=== PATIENT | female | born 1980 | race Native Hawaiian/Other Pacific Islander ===

== ENCOUNTER 2024-08-01 15:41 | Outpatient (CLI) | payer OTHER, SELFPAY ==
[2024-08-04 04:55] LABS: HPV Source Cervix; HPV, High Risk by TMA Not Detected
== END 2024-08-01 15:42 | disposition home or self-care (01) ==
PROVIDERS: Visit Provider Registered Nurse
DX: Z12.4 Encounter for screening for malignant neoplasm of cervix (principal); Z11.51 Encounter for screening for human papillomavirus (HPV); Z13.6 Encounter for screening for cardiovascular disorders
CPT/HCPCS: 80061; 87624; 87625; 88141; 88142

== ENCOUNTER 2024-08-06 14:56 | Outpatient (CLI) | payer OTHER, SELFPAY | END 2024-08-06 14:57 | disposition home or self-care (01) | LOC: US 14:58 | PROVIDERS: Visit Provider Registered Nurse | DX: R10.2 Pelvic and perineal pain (principal); R14.0 Abdominal distension (gaseous) | CPT/HCPCS: 76830; 76856; 93976 ==

== ENCOUNTER 2024-08-21 16:10 | Outpatient (CLI) | payer OTHER, SELFPAY | END 2024-08-21 16:11 | disposition home or self-care (01) | PROVIDERS: Visit Provider Family Medicine | DX: R10.30 Lower abdominal pain, unspecified (principal); R10.2 Pelvic and perineal pain | CPT/HCPCS: 80053; 86140; 87086; 87186 ==

== ENCOUNTER 2024-09-04 14:52 | Outpatient (CLI) | payer OTHER, SELFPAY ==
--- NOTE | 2024-09-04 15:00 | CRLHL7_ITS ---
For Patients: As a result of the Century Cures Act, medical imaging exams and procedure reports are released immediately into your electronic medical record. You may view this report before your referring provider. If you have questions, please contact your health care provider. INDICATION: Lower abdominal pain. Evaluate for mass, constipation, stones. TECHNIQUE: CT abdomen and pelvis without contrast. COMPARISON: None. FINDINGS: Lower chest: 5 mm middle lobe nodule (3/3) and 5 mm right lower lobe subpleural nodule (3/1). No acute infiltrate. Liver: Normal in size and attenuation. No suspicious masses. Gallbladder and bile ducts: No stones or inflammation. No biliary dilatation. Pancreas: Unremarkable. No mass or inflammation. Spleen: Normal in size. No masses. Adrenal glands: Normal in size. No nodules. Kidneys: Normal in size. Punctate nonobstructive renal calcifications. No suspicious masses, obstructive stones, or hydronephrosis. GI tract: Unremarkable. Normal in caliber. No sign of mass or inflammation. No secondary signs of appendicitis. Vasculature: Abdominal aorta is normal in caliber. Lymph nodes: No lymphadenopathy. Peritoneum/Abdominal Wall: Unremarkable. No sign of mass or infiltration. No free air or significant free fluid. Pelvis: Bladder is unremarkable. Right adnexal cyst measuring up to 4.3 cm (2/102). Bones: Unremarkable for age. IMPRESSION: 1. No definite acute findings to explain the patient`s symptoms. 2. Right adnexal cyst measuring up to 4.3 cm that could be evaluated in greater detail on pelvic ultrasound, if clinically indicated. Please note that all CT scans at this facility use dose modulation, iterative reconstruction, and/or weight-based dosing when appropriate to reduce radiation dose to as low as reasonably achievable. Dictated by Rafi Dickerson MD @ 09/05/2024 3:48:01 AM (Electronically Signed)
== END 2024-09-04 14:53 | disposition home or self-care (01) ==
LOC: CT 14:53
PROVIDERS: PCP Family Medicine; Visit Provider Family Medicine
DX: R10.30 Lower abdominal pain, unspecified (principal); N94.89 Other specified conditions associated with female genital organs and menstrual cycle; R10.2 Pelvic and perineal pain
CPT/HCPCS: 74176

== ENCOUNTER 2025-02-17 20:51 | Emergency (ER) | payer OTHER, SELFPAY ==
--- OUTSIDE RECORDS SUMMARY | 2025-02-17 20:53 | XMS_ITS | Clinical Summary ---
Author Organization [facility] Address [address] [place] [id number] Care Team Providers Care Emt Driver Name Role Phone Ruma Thomas DO Primary Care Provider [phone] Allergies No known active allergies Medications albuterol-ipratro pium (DUONEB) (2.5-0.5 mg) in 3 mL NEBULIZATION solutionIndicatio ns:Mild intermittent asthma without complication (HC) Inhale 3 mL via a nebulizer every 6 hours if needed for Shortness Of Breath or Wheezing. 75 mL 5 01/24/20 25 Active albuterol HFA (PRO-AIR; VENTOLIN; PROVENTIL) 90 mcg/actuation inhalerIndication s:Mild intermittent asthma without complication (HC) Inhale 2 Puffs by mouth every 4 hours if needed for Shortness of Breath 1st choice or Wheezing 1st choice. Needs appointment for further refills. 16 g 3 01/24/20 25 Active fluticasone propion-salmetero L (Advair Diskus) 250-50 mcg/Dose diskus inhalerIndication s:Mild intermittent asthma without complication (HC) Inhale 1 Puff by mouth two times daily. 60 Each 11 01/24/20 25 Active NebulizerIndicati ons:Mild intermittent asthma without complication (HC) Nebulizer, disposable neb kit x 4, reuseable neb kit x 1, mask x 1, filters x 1. Frequency of use: daily; Medication: albuterol Length of need: lifestime 01/24/20 25 Active albuterol 0.083% (2.5 mg/3 mL) neb solutionIndicatio ns:Mild intermittent asthma without complication (HC) Inhale 3 mL (2.5 mg) via a nebulizer every 4 hours if needed for Wheezing 2nd choice or Shortness of Breath 2nd choice. Needs appointment for further refills. 30 mL 12/28/19 24 025 Discontin ued(*Medi cation adjustmen t) NebulizerIndicati ons:Mild intermittent asthma without complication (HC) Nebulizer, disposable neb kit x 4, reuseable neb kit x 1, mask x 1, filters x 1. Frequency of use: daily; Medication: albuterol Length of need: lifestime 1 Each 12/28/19 24 025 Discontin ued(Reord er (E-cancel not sent)) norethin anali-eth estrad-fe, 1-20 mg-mcg, (LOESTRIN FE 07/02; JUNEL FE 07/02) tabletIndications :Initiation of oral contraception Take 1 Tablet by mouth once daily. 90 Tablet 3 07/20/19 25 025 Discontin ued(*Milagro ent states no longer taking) albuterol HFA (PRO-AIR; VENTOLIN; PROVENTIL) 90 mcg/actuation inhalerIndication s:Mild intermittent asthma without complication (HC) Inhale 2 Puffs by mouth every 4 hours if needed for Shortness of Breath 1st choice or Wheezing 1st choice. Needs appointment for further refills. 8 g 1 12/29/19 025 Discontin ued(Reord er (E-cancel not sent)) fluticasone propion-salmetero L (Advair Diskus) 250-50 mcg/Dose diskus inhalerIndication s:Mild intermittent asthma without complication (HC) Inhale 1 Puff by mouth two times daily. 60 Each 12/28/19 25 025 Discontin ued(Reord er (E-cancel not sent)) Hospital, Clinic, or Other Facility Administered Medication Ordered Dose Route Frequency Start Date End Date Status etonogestrel subdermal implant (NEXPLANON) 1 EachIndications:Encounter for removal and reinsertion of Nexplanon 1 Each Sdrm Q 3 YEARS 07/01/2021 Active Active Problems Problem Noted Date Diagnosed Date Cubital tunnel syndrome on left 11/08/2023 S/P trigger finger release 08/30/2023 S/P carpal tunnel release 08/30/2023 Carpal tunnel syndrome of left wrist 05/24/2023 Carpal tunnel syndrome of right wrist 05/24/2023 Trigger middle finger of right hand 05/24/2023 Anxiety and depression 08/21/2021 Mild intermittent asthma 07/19/2017 Anxiety 04/21/2016 Obesity with body mass index 30 or greater 09/03 Allergic rhinitis 09/03/2014 Encounters Date Type Department Care Team Description 01/23/2025 3:30 PM CDT Office Visit [facility] [address] [place] [address] Contreras Gooden PA Medication Management 01/23/2025 Travel 12/27/[address] [facility] [address] [place] [address] Ruma Thomas, Refill Request (albuterol HFA & fluticasone propion-salmeteroL) from Last 3 Months Immunizations Immunization Administration Dates Next Due Influenza Virus, Unspecified 03/20/2020,06/01/20 12 Influenza, IIV3 (Age >=3 years) 06/01/2012 Influenza, IIV4 03/02/2023,04/09/2021,03/16/2019 Influenza,LAIV4 Live Intranasal (Flumist) 2011 Td, Preservative Free (age >= 7 Years) 3 Tdap 06/01/2012 Family History Medical History Relation Name Comments Good Health Brother Good Health Daughter Heart Disease Father maybe [place]? Dementia Maternal Grandfather Dementia Maternal Grandmother Good Health Mother Good Health Sister Good Health Son Relation Name Status Comments Brother Alive Daughter Alive Father Maternal Grandfather Maternal Grandmother Mother Alive Paternal Grandfather Paternal Grandmother Sister Alive Son Alive Social History Tobacco Use Types Packs/Day Years Used Date Smoking Tobacco: Former Cigarettes 0 13 2 - 2013 Smokeless Tobacco: Never Alcohol Use Standard Drinks/Week Comments Yes 4 (1 standard drink = 0.6 oz pur e alcohol) weekends PHQ-2 Answer Date Recorded PHQ-2 TOTAL SCORE 2 01/23/2025 Social Connections Answer Date Recorded Do you often feel lonely or isolated from those around you? 0 07/20/2024 Alcohol Use Answer Date Recorded How often do you have a drink containing alcohol ? 2 07/01/2021 How many drinks containing a lcohol do you have on a typical day when you are drinking? 0 07/01/2021 How often do you have five or more drinks on one occasion? 0 07/01/2021 Financial Resource Strain Answer Date R ecorded Difficulty of Paying Living Expenses 3 07/20/2024 Difficulty of Paying Living Expenses Not on file 07/20/2024 Food Insecurity Answer Date Recorded Do you worry your food will run out before you are able to buy more? 1 07/20/2024 Transportation Needs Answer Date Record ed Does lack of transportation keep you from medica l appointments? 1 07/20/2024 Does lack of transportation keep you from work, meetings or getting things that you need? 1 07/20/2024 Housing Stability Answer Date Recorded What is your housing situation today? 1 07/20/2024 Utilities Answer Date Recorded Do you have trouble paying f or utilities (for example, heat, electricity, water, phone)? 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 Not on file Obstetrics History Last Filed Vital Signs Vital Sign Reading Time Taken Comments Blood Pressure 124/80 01/23/2025 3:44 PM CDT Pulse 77 01/23/2025 3:44 PM CDT Temperature 36.5 C (97.7 F) 07/20/2024 4:04 PM KNOWLEDGE ENGINEER Respiratory Rate 16 06/16/2023 9:41 AM KNOWLEDGE ENGINEER Oxygen Saturation 98% 01/23/2025 3:4 4 PM CDT Inhaled Oxygen Concentration - - Weight 73.1 kg (161 lb 1.6 oz) 01/24/20 25 3:44 PM CDT with boots Height 152.4 cm (5') 01/23/2025 3:44 PM CDT with boots Body Mass Index 31.46 01/23/2025 3:44 PM CDT Plan of Treatment Health Maintenance Due Date Last Done Comments HIV for age 15-65 1996 Hepatitis C screening for age 18-79 08/13/1999 Hepatitis B series for 19+ (1 of 3 - 19+ 3-dose series) 2000 COVID-19 vaccine series (2024- season) 2025 05/18/2021, 09/30/2020, 09/09/2020 Influenza Vaccine (#1) 2025 , 04/09/2021, 03/20/2020, Additional history exists BMI (ht and wt on same day) for age 18+ 01/23/2026 01/23/2025, 06/22/2023, 03/02/2023, Additional history exists Depression screening for age 12+ 01/23/2026 01/23/2025, 03/02/2023, 12/10/2021, Additional history exists Pap test for age 21-65 08/02/2029 (Verified in Care Everywhere or Patient Record) Tetanus booster 03/02/2033 03/02/2023, 06/01/2012 RSV vaccine for adults or (1 - 1-dose 75+ series) 2056 Pneumococcal series for age 6-49 Aged Out No longer eligible based on patient's age to complete this topic Insurance [facility] Advance Directives * Full Code (Latest Code Status on File) Date Activated Date Inactivated Comments 06/16/2023 8:21 AM 06/16/2023 1:24 PM Question Answer Comments Code Status Discussion: Unable to Assess Preferences, Provider to review later Care Teams Emt Driver Relationship Specialty Start Date End Date Ruma Thomas DO [address] [place] [address] PCP - General Family Practice 12/28/23
--- OUTSIDE RECORDS SUMMARY | 2025-02-17 20:53 | XMS_ITS | Clinical Summary ---
Author Organization [employer] Address [address] [place] [address] Care Team Providers Care Sr Technical Sales Consultant Name Role Phone Needs Pcp, Assignment Primary Care Provider [phone] Source Comments You are receiving this document as you are listed as the primary care provider,follow-up provider, or the patient has been referred to you for consultation.This is in compliance with the Medicare and[facility] EHR Incentive Program,which states Providers who transition their patient to another setting of careor provider of care or refers their patient to another provider of care shouldprovide summary care record for each transition of care or referral. [employer] Allergies No known active allergies Medications fluticasone (AKA FLOVENT HFA) 110 mcg/actuation inhalerIndicati ons:Asthma flare, mild persistent (HRC) Inhale 1 puff 2 times daily. Rinse mouth/Gargle after use 1 Inhaler PRN 5 Active ALBUterol 5 mg/mL, 0.5%, (AKA PROVENTIL) (5 MG/ML) 0.5% nebulizer solution Inhale 2.5 mg by nebulization 3 times daily. 5 Active fluticasone (AKA FLONASE) 50 MCG/ACT nasal solution Place 2 sprays into each nostril daily (every 24 hours). Dose is for each nostril. 16 g 11 5 Active ALBUterol sulfate HFA 108 (90 BASE) MCG/ACT inhaler Inhale 2 puffs every 6 hours as needed for Wheezing. 1 Inhaler 0 6 Active DULoxetine (CYMBALTA) 60 MG capsule Take 60 mg by mouth daily. Active busPIRone (BUSPAR) 15 MG tablet Take 7.5 mg by mouth two times a day. Active cephALEXin (KEFLEX) 500 MG capsule Take 1 Cap by mouth two times a day. 14 Cap 0 7 Active Active Problems Problem Noted Date Diagnosed Date Allergic rhinitis due to allergen 09/03/2014 Asthma flare 09/03/2014 Obesity (BMI 30-39.9) 09/03/2014 Resolved Problems Problem Noted Date Diagnosed Date Resolved Date Asthma flare 09/02/2014 09/03/2014 Immunizations Immunization Administration Dates Next Due Flu Vac Preserv Free (3+yrs) 06/01/2012 TDAP (ADACEL) 06/01/2012 Family History Medical History Relation Name Comments Depression Other Relation Name Status Comments Father Alive Mother Alive Brother Alive Other Sister Alive Social History Tobacco Use Types Packs/Day Years Used Date Smoking Tobacco: Former Alcohol Use Standard Drinks/Week Comments Yes 2 (1 standard drink = 0.6 oz pur e alcohol) 2 per week Comments Unknown Sex and Gender Information Value Date Recorded Sex Assigned at Not on file Legal Sex Female 7:44 AM CDT Gender Identity Not on file Sexual Orientation Not on file 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 Pulse 77 07/09/2016 2:29 PM MULTIMEDIA AUTHORING SPECIALIST Temperature 36.7 C (98 F) 07/09/2016 2:29 PM MULTIMEDIA AUTHORING SPECIALIST Respiratory Rate 20 07/09/2016 2:29 PM MULTIMEDIA AUTHORING SPECIALIST Oxygen Saturation - - Inhaled Oxygen Concentration - - Weight 69.7 kg (153 lb 9.6 oz) 10/16/2014 11:45 AM CDT Height 149.2 cm (4' 10.75) 10/16/2014 11:45 AM CDT Body Mass Index 31.29 10/16/2014 11:45 AM CDT Plan of Treatment Health Maintenance Due Date Last Done Comments Cervical Cancer Screening Due 1981 Hep C Screening (Preventive Services) 1981 Mammogram 1981 Asthma ACT (score of 20 or higher) 1985 HIV Screening (Preventive Services) 1997 Adult Preventive Visit 08/13/1999 HepB Vaccine (1) 2000 HPV Vaccine (1 - 3-dose SCDM series) 2008 DTaP/Tdap/Td Vaccine (2 - Tdap) 06/01/2022 2 COVID-19 Vaccine (1 - 2023-2 5 season) 2025 Influenza Vaccine (#1) 2025 06/01/2012 Zoster/Shingles Vaccine (1 of 2) 08/13/2031 HepA Vaccine Aged Out No longer eligi ble based on patient's age to complete this topic Hib Vaccine Aged Out No longer eligi ble based on patient's age to complete this topic IPV (Polio) Vaccine Aged Out No longe r eligible based on patient's age to complete this topic MCV4 Vaccine Aged Out No longer eligi ble based on patient's age to complete this topic Meningococcal B Vaccine Aged Out No l onger eligible based on patient's age to complete this topic Pneumococcal Vaccine Aged Out No long er eligible based on patient's age to complete this topic Care Teams Sr Technical Sales Consultant Relationship Specialty Start Date End Date Needs Pcp, [place] [address] PCP - General 10/15/14
[2025-02-17 21:24] VITALS: BP 156/87; PULSE 92; RESP 18; TEMP 37; O2SAT 97; BMI 29.3
--- NOTE | 2025-02-17 21:52 | CRLHL7_ITS ---
For Patients: As a result of the Century Cures Act, medical imaging exams and procedure reports are released immediately into your electronic medical record. You may view this report before your referring provider. If you have questions, please contact your health care provider. Indication: Shortness of breath Technique: Two views of the chest Comparison: Chest CT performed 06/22/2018 Findings/Impression: Suspect left basilar consolidation. Follow-up radiographs in 4-6 weeks recommended. Dictated by Franky Hines MD @ 02/17/2025 10:21:21 PM (Electronically Signed)
--- NOTE | 2025-02-17 22:03 | ED.SOB ---
HPI - SOB/Dyspnea General Date Seen: 02/17/25 Chief Complaint: Shortness of Breath/Dyspnea Stated Complaint: difficulty breathing Time Seen by Provider: 02/17/25 21:47 Source: patient Mode of arrival: ambulatory Limitations: no limitations History of Present Illness HPI Narrative: Patient is a 44-year-old female with a history of asthma presenting to the emergency department for 1 week of shortness of breath. She states over the past week she has been having some sinus congestion, difficulty breathing, overall feeling like she has a viral infection. States she has been using her home inhalers without improvement in her symptoms. States she is always feeling short of breath. Says it is hard to take a deep breath. She has a naranjo so is around a lot of dust and that is making her symptoms worse. She states she has been using her home inhalers without any improvement in her symptoms. Is not having any associated chest pain. States in the past when she has had symptoms like this she would need steroids to help. Is not on any control. Denies hemoptysis, recent surgery, history of cancer, recent travel, lower extremity edema, history of blood clots. No history of heart disease. No other concerns noted at this time. Related Data Home Medications ?Medication ?Instructions ?Recorded ?Confirmed albuterol sulfate 2.5 mg/3 mL mg continuous nebulization 08/01/24 08/21/24 (0.083 %) solution for nebulization albuterol sulfate 90 mcg/actuation 2 puff inhalation Q4H PRN wheezing 08/01/24 08/21/24 aerosol inhaler fluticasone 250 mcg-salmeterol 50 1 ea inhalation BID 08/01/24 08/21/24 mcg/dose blistr powdr for inhalation (Wixela Inhub) Allergies Allergy/AdvReac Type Severity Reaction Status Date / Time No Known Drug Allergies Allergy Verified 08/21/24 15:21 Review of Systems Status of ROS: Reports: 10 or more systems reviewed and unremarkable except as noted in History and below PFSH PFSH Surgical History S/P trigger finger release ?Z98.890 - Other specified postprocedural states (ICD-10) S/P section ?Z98.891 - History of uterine scar from previous surgery (ICD-10) Social History Narrative: Works as a [employer]. What is your current living situation?: I presently have a place to live Problems where you live: declined to answer In the past 12 months, utilities in danger of being shut off: no In past 12 months, lack of transportation kept you from medical appts, meetings, work, or getting things needed for daily living: no In the past 12 mos, have been you worried that your food would run out before you had money to buy more?: never true In the past 12 mos, the food you bought just didn't last and you didn't have money to buy more?: never true How often does anyone, including family, friends and others, physically hurt you: never How often does anyone, including family, friends and others, insult or talk down to you: never How often does anyone, including family, friends and others, threaten you with harm: never How often does anyone, including family, friends and others, scream or curse at you: never Exam Narrative: Exam Narrative: Const: Well-nourished, Well-developed, in no distress Eyes: PERRL, no conjunctival injection, and symmetrical lids HENT: Atraumatic external nose and ears. Moist mucous membranes. Neck: Symmetric, trachea midline, No thyromegaly. CVS: RRR, No murmurs or gallops. Peripheral pulses 2+ and equal in all extremities RESP: Unlabored respiratory effort. Mild end expiratory wheezing GI: Nontender/Nondistended, No rebound or guarding. MSK:Extremities w/o deformity, Normal Active ROM Skin: Warm, Dry. No rashes or lesions. Neuro: Normal Muscle tone, No focal neurological deficits. Psych: Awake, Alert, & Oriented x3. Appropriate mood and affect. Const: Vital Signs, click to edit/add: Vital Signs - 24 hr 02/17/25 21:24 Temperature 98.6 F Pulse Rate [Pulse Oximeter] 92 Respiratory Rate 18 Blood Pressure [Ri ght Upper Arm] 156/87 H Pulse Oximetry 97 Oxygen Delivery Me thod Room Air Course Vital Signs Vital signs: Initial Vital Signs Temperature 98.6 F 02/17/25 21:24 Temperature Source Temporal Artery Scan 02/17/25 21:24 Pulse Rate 92 09/07/25 21:24 Respiratory Rate 18 02/17/25 21:24 Blood Pressure 156/87 H 02/17/25 21:24 Blood Pressure Mean 110 H 02/17/25 21:24 Blood Pressure Position Sitting 02/17/25 21:24 Pulse Oximetry 97 02/17/25 21:24 Oxygen Delivery Method Room Air 02/17/25 21:24 Vital Signs Temperature 98.6 F 02/17/25 21:24 Pulse Rate 92 02/17/25 21:24 Respiratory Rate 18 02/17/25 21:24 Blood Pressure 156/87 H 02/17/25 21:24 Pulse Oximetry 97 02/17/25 21:24 Oxygen Delivery Method Room Air 02/17/25 21:24 Temperature 98.6 F 02/17/25 21:24 Pulse Rate 92 02/17/25 21:24 Respiratory Rate 18 02/17/25 21:24 Blood Pressure 156/87 H 02/17/25 21:24 Pulse Oximetry 97 02/17/25 21:24 Oxygen Delivery Method Room Air 02/17/25 21:24 Medications Administered Medications: Discontinued Medications Generic Name Dose Route Start Last Admin Trade Name Freq PRN Reason Stop Dose Admin Albuterol/Ipratropium 1 neb 02/17/25 21:52 02/17/25 22:11 Iprat-Albut 0.5-2.5 Mg/3 Ml Neb IH 02/17/25 21:53 1 neb ONCE ONE Administration Prednisone 40 mg 02/17/25 21:52 02/17/25 22:11 Prednisone 20 Mg Tablet PO 02/17/25 21:53 40 mg ONCE ONE Administration MDM - SOB/Dyspnea MDM Narrative Medical decision making narrative: Patient is a 44-year-old female presenting for shortness of breath. The differential diagnosis of shortness of breath is broad and includes common etiologies such as COPD, asthma, pneumonia, viral syndrome, etc. More serious etiologies considered include PE, CHF, coronary artery disease, pneumothorax, aortic dissection, aortic aneurysm. This is most likely an asthma exacerbation. Will try a another dose of breathing treatment. DuoNebs ordered. She is PERC negative and PE can not be ruled out. She looks otherwise stable and your dissection and aortic aneurysm seem unlikely. Chest x-ray will be ordered to look for signs pneumonia or pneumothorax. Will do EKG troponin look for signs of heart abnormalities. Lab work returned showing no acute concerning abnormality. She was not feeling much better after the breathing treatment. X-ray does show suspected left basilar consolidation. Considering this and her symptoms I will treat her with for pneumonia. Will also discharge her with Augmentin and azithromycin via instymeds. Steroids ordered for her asthma exacerbation. Lab Data Labs: Lab Results 02/17/25 Range/Units 22:20 WBC 8.13 (4.50-11.00) K/uL RBC 4.26 (4.00-5.20) m/uL Hgb 13.3 (12.0-16.0) gm/dL Hct 39.6 (33.0-51.0) % MCV 93 (80-100) fL MCH 31 (26-34) pg MCHC 34 (32-36) gm/dL RDW Coeff of Sammy 12.4 (11.5-15.5) % Plt Count 158 (140-440) K/uL Neut % (Auto) 52.8 (42.0-72.0) % Lymph % (Auto) 25.0 (20-44) % [place] % (Auto) 11.2 H (0.0-11.0) % Eos % (Auto) 10.5 H (0.0-7.0) % Baso % (Auto) 0.5 (0.0-3.0) % Neut # (Auto) 4.30 (1.7-7.0) K/uL Lymph # (Auto) 2.03 (0.90-2.90) K/uL [place] # (Auto) 0.90 (0.00-0.90) K/UL Eos # (Auto) 0.90 H (0.00-0.50) K/uL Baso # (Auto) 0.04 (0.00-0.30) K/uL Abs Immat Gran (auto) 0.00 (0.00-0.30) K/uL Imm/Tot Granulo (auto) 0.0 % Sodium 138 (135-149) mmol/L Potassium 3.8 (3.6-5.1) mmol/L Chloride 102 (96-114) mmol/L Carbon Dioxide 29 (20-32) mmol/L Anion Gap 7 (7-15) mEq/L BUN 10 (5-24) mg/dL Creatinine 0.7 (0.5-1.5) mg/dL Estimated Creat Clear 107.60 Estimated GFR 110 ml/min Glucose 106 (60-115) mg/dL Calcium 8.9 (8.4-10.6) mg/dL Imaging Data Chest x-ray: Attestation: I have reviewed the pertinent imaging results. Radiologist's impression: Suspect left basilar consolidation. Follow-up radiographs in 4-6 weeks recommended. Dictated by Franky Hines MD @ 02/17/2025 10:21:21 PM ECG Data Attestation: I personally reviewed and interpreted this ECG as follows: Prior ECG tracings: not available for review Interpretation: EKG shows normal sinus rhythm with a rate of 88 beats per minute, normal intervals, normal axis, no ST or T-wave abnormalities. Discharge Plan Discharge Clinical Impression: Pneumonia Qualifiers: Pneumonia type: due to unspecified organism Laterality: left Lung location: lower lobe of lung Qualified Code(s): J18.9 - Pneumonia, unspecified organism Patient Disposition: Home, Self-Care Condition: Stable Instructions: Community Acquired Pneumonia (DC) Additional Instructions: information support project manager the antibiotics from instymeds and use them as directed. You can start taking those right away. Start taking the steroids in the morning. We will call you back with the results of your viral swabs if anything is positive. Return to emergency department for new or worsening symptoms. Follow up with the primary care provider if symptoms are not improving Prescriptions: No Action albuterol sulfate 90 mcg/actuation HFA aerosol inhaler 2 puff inhalation Q4H PRN (Reason: wheezing) albuterol sulfate 2.5 mg /3 mL (0.083 %) solution for nebulization continuous nebulization Patient Comments: [NO ORIGINAL SIG] fluticasone propion-salmeterol [Wixela Inhub] 250-50 mcg/dose blister with device 1 ea inhalation BID Follow Up/Referrals: Jeff Riojas MD [Primary Care Provider, Family Practice] Stand Alone Forms: [employer] Info Instructions
[2025-02-17] MEDS: IPRAT-ALBUT 0.5-2.5 MG/3 ML NEB 1 NEB IH (22:11)
[2025-02-17 22:28] LABS: Hematocrit* 39.6 % (33.0-51.0); Hemoglobin* 13.3 gm/dL (12.0-16.0); Immature Granulocytes Abs Auto 0.00 K/uL (0.00-0.30); Immature Granulocytes Pct Auto 0.0 %; Lymphocytes Absolute Auto 2.03 K/uL (0.90-2.90); Mean Corpuscular HGB Conc 34 gm/dL (32-36); Mean Corpuscular Hemoglobin 31 pg (26-34); Mean Corpuscular Volume 93 fL (80-100); RDW Coefficient of Variation % 12.4 % (11.5-15.5); Red Blood Count* 4.26 m/uL (4.00-5.20); White Blood Count* 8.13 K/uL (4.50-11.00)
[2025-02-17 22:30] LABS: Slide Review Reflex No
[2025-02-17 22:42] LABS: Chloride* 102 mmol/L (96-114)
[2025-02-17 22:43] LABS: Potassium* 3.8 mmol/L (3.6-5.1); Sodium* 138 mmol/L (135-149)
[2025-02-17 22:45] LABS: Blood Urea Nitrogen* 10 mg/dL (5-24); Creatinine* 0.7 mg/dL (0.5-1.5); Est. Creatinine Clearance* 107.60; Estimated Glomerular Filt Rate 110 ml/min
[2025-02-17 22:46] LABS: Anion Gap 7 mEq/L (7-15); Calcium* 8.9 mg/dL (8.4-10.6); Carbon Dioxide* 29 mmol/L (20-32); Glucose* 106 mg/dL (60-115)
[2025-02-17 23:28] LABS: PCR FLU A Negative PCR FLU A (Negative); PCR FLU B Negative PCR FLU B (Negative); PCR RSV Negative PCR RSV (Negative); SARS PCR* Negative SARS-CoV-2 (Negative)
[2025-03-01 10:46] LABS: Troponin, Point-of-Care* 0.01 ng/ml (0.01-0.04)
== END 2025-02-17 23:40 | disposition home or self-care (01) ==
PROVIDERS: Emergency Provider Student in an Organized Health Care Education/Training Program; PCP Family Medicine
DX: J18.9 Pneumonia, unspecified organism (principal)
CPT/HCPCS: 36415; 71046; 80048; 82803; 84484; 85025; 87631; 93005; 99284; J7512

== ENCOUNTER 2025-02-19 17:19 | Emergency (ER) | payer OTHER, SELFPAY ==
--- OUTSIDE RECORDS SUMMARY | 2025-02-19 17:21 | XMS_ITS | Clinical Summary ---
Author Organization [facility] Address [address] [place] [address] Care Team Providers Care Fermentologist Name Role Phone Needs Pcp, Assignment Primary Care Provider [phone] Source Comments You are receiving this document as you are listed as the primary care provider,follow-up provider, or the patient has been referred to you for consultation.This is in compliance with the Medicare and[place] EHR Incentive Program,which states Providers who transition their patient to another setting of careor provider of care or refers their patient to another provider of care shouldprovide summary care record for each transition of care or referral. [employer]swiing Allergies No known active allergies Medications fluticasone [...] Comments Blood Pressure 129/93 07/09/2016 2:29 PM TELECOMMUNICATION TOWER TECHNICIAN Pulse 77 07/09/2016 2:29 PM TELECOMMUNICATION TOWER TECHNICIAN Temperature 36.7 C (98 F) 07/09/2016 2:29 PM TELECOMMUNICATION TOWER TECHNICIAN Respiratory Rate 20 07/09/2016 2:29 PM TELECOMMUNICATION TOWER TECHNICIAN Oxygen Saturation - - Inhaled Oxygen Concentration [...] age to complete this topic Care Teams Fermentologist Relationship Specialty Start Date End Date Needs Pcp, [place] [address] PCP - General 10/15/14
--- OUTSIDE RECORDS SUMMARY | 2025-02-19 17:21 | XMS_ITS | Clinical Summary ---
Author Organization [employer] [facility] Address [address] [place] [id number] Care Team Providers Care Net Lead Architect Name Role Phone Ruma Thomas DO Primary Care Provider [phone] Allergies No known active allergies Medications albuterol-ipratro [...] Encounters Date Type Department Care Team Description 02/19/2025 Nurse Triage [facility] [address] [place] [address] Ruma Thomas, Pneumonia 01/23/2025 3:30 PM CDT Office Visit [facility] [address] [place] [address] Contreras Gooden PA Medication Management 01/23/2025 Travel 12/27/2024 Refill [facility] [address] [place] [address] Ruma Thomas, Refill Request (albuterol HFA & [...] Good Health Daughter Heart Disease Father maybe [place]? 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 Not on file Not on file Obstetrics History Last Filed Vital Signs Vital Sign Reading Time Taken Comments Blood Pressure 124/80 01/23/2025 3:44 PM CDT Pulse 77 01/23/2025 3:44 PM CDT Temperature 36.5 C (97.7 F) 07/20/2024 4:04 PM MOTEL FRONT DESK ATTENDANT Respiratory Rate 16 06/16/2023 9:41 AM MOTEL FRONT DESK ATTENDANT Oxygen Saturation 98% 01/23/2025 3:4 4 PM CDT Inhaled Oxygen Concentration - - Weight 73.1 kg (161 lb 1.6 oz) 01/24/20 25 3:44 PM CDT with boots Height 152.4 cm (5') 01/23/2025 3:44 PM CDT with boots Body Mass Index 31.46 01/23/2025 3:44 PM CDT Plan of Treatment Upcoming Encounters Date Type Department Care Team (Late st Contact Info) Description 02/20/2025 2:00 PM CDT Office Visit [facility] [place] [address] Contreras Gooden [place], [place] [id number] Health Maintenance Due Date Last Done Comments HIV for age 15-65 1996 Hepatitis C screening for age 18-79 08/13/1999 Hepatitis B series for 19+ (1 of 3 - 19+ 3-dose series) 2000 HPV series for age 9-45 (1 - 3-dose SCDM series) 2008 COVID-19 vaccine series ( season) 2025 05/18/2021, 09/30/2020, 09/09/2020 Influenza Vaccine [...] patient's age to complete this topic Insurance [facility] Advance Directives * Full Code (Latest Code Status on File) Date Activated Date Inactivated Comments 06/16/2023 8:21 AM 06/16/2023 1:24 PM Question Answer Comments Code Status Discussion: Unable to Assess Preferences, Provider to review later Care Teams Net Lead Architect Relationship Specialty Start Date End Date Ruma Thomas DO [address] [place] [address] PCP - General Family Practice 12/28/23
[2025-02-19 17:28] VITALS: BP 146/82; PULSE 88; RESP 18; TEMP 37.2; O2SAT 95; BMI 29.3
--- NOTE | 2025-02-19 18:39 | ED_ITS ---
HPI - General Adult General Date Seen: 02/19/25 Chief complaint: Shortness of Breath/Dyspnea Stated complaint: labored breathing Time Seen by Provider: 02/19/25 18:37 History of Present Illness HPI narrative: 44-year-old female with a history of asthma returns to the ER today with concern for shortness of. She had been seen here 2 days ago 02/[address] Gomes. 41 to those notes she had had about a week of sinus congestion, trouble breathing, viral symptoms. Using home inhalers without improvement. In the ER she received DuoNeb. EKG was normal. COVID/influenza/RSV PCR negative. White count 8.1, hemoglobin 13, platelet count 158. Sodium 138, potassium 3.8, chloride 102, bicarb 29, BUN 10, creatinine 0.7. X-ray showed a left basilar consolidation. Discharge with Augmentin and Azithromycin. Also given a prescription for prednisone. She reports that she has taken the antibiotics as prescribed (2 full days so far). She still feeling short of breath. She still has a cough that is sometimes dry and sometimes productive of yellow sputum . she is not having any new fever. No worsening chest pain. No worsening GI symptoms. She is not vomiting. She is not having any swelling in her legs. No history PE. She called the other clinic today. She has an appointment tomorrow for a ER follow-up recheck. When she discussed with the clinic triage nurse that she was still just short of breath is ever in not getting better, she was told to come to the ER. Related Data Home Medications ?Medication ?Instructions ?Recorded ?Confirmed albuterol sulfate 2.5 mg/3 mL mg continuous nebulizati on 08/01/24 08/21/24 (0.083 %) solution for nebulization albuterol sulfate 90 mcg/actuation 2 puff inhalation Q 4H PRN wheezing 08/01/24 02/19/25 aerosol inhaler fluticasone 250 mcg-salmeterol 50 1 ea inhalation BID 08/01/24 02/19/25 mcg/dose blistr powdr for inhalation (Melvi Inhub) amoxicillin 02/19/25 azithromycin 02/19/25 prednisone 02/19/25 Previous Rx's ?Medication ?Instructions ?Recorded ipratropium 0.5 mg-albuterol 3 mg 3 ml inhalation Q4H PRN #90 mL 02/19/25 (2.5 mg base)/3 mL nebulization soln Allergies Allergy/AdvReac Type Severity Reaction Status Date / Time No Known Drug Allergies Allergy Verified 08/21/24 15:21 PFSH PFS Surgical History S/P trigger finger release ?Z98.890 - Other specified postprocedural states (ICD-10) S/P section ?Z98.891 - History of uterine scar from previous surgery (ICD-10) Social History Narrative: Works as a [employer]. What is your current living situation?: I presently have a place to live Problems where you live: declined to answer In the past 12 months, utilities in danger of being shut off: no In past 12 months, lack of transportation kept you from medical appts, meetings, work, or getting things needed for daily living: no In the past 12 mos, have been you worried that your food would run out before you had money to buy more?: never true In the past 12 mos, the food you bought just didn't last and you didn't have money to buy more?: never true Smoking Status: Former smoker What tobacco products do you use: cigarettes Smoking quit date/years: <= 15 years ago Do you use any of these nicotine containing products: None Second hand tobacco smoke exposure: No Non-prescribed substance use: denies use How often does anyone, including family, friends and others, physically hurt you : never How often does anyone, including family, friends and others, insult or talk down to you: never How often does anyone, including family, friends and others, threaten you with harm: never How often does anyone, including family, friends and others, scream or curse at you: never service: No Exam Narrative: Exam Narrative: Constitutional: Appears well-developed and well-nourished. Alert. Conversant. Non toxic. HENT: Head: Atraumatic. Nose: Nose normal. Right ear: TM slightly erythematous. Canal normal Left ear: TM normal. Canal normal. Mouth/Throat: Oral mucosa is clear and moist. no trismus. Pharynx normal. Tonsils symmetric. No tonsillar enlargement, erythema, or exudate. Eyes: Conjunctivae normal. EOM normal. Pupils equal, round, and reactive to light. No scleral icterus. Neck: Normal range of motion. Neck supple. No tracheal deviation present. Cardiovascular: Normal rate, regular rhythm. No gallop. No friction rub. No murmur heard. Symmetric radial artery pulses Pulmonary/Chest: Effort normal. No stridor. No respiratory distress. Fairly diffuse musical wheezes. No rales. No rhonchi . No tenderness. Abdominal: Soft. No distension. No mass. No tenderness. No rebound. No guarding. Musculoskeletal: RUE: Normal range of motion. No tenderness. No deformity LUE: Normal range of motion. No tenderness. No deformity RLE: Normal range of motion. No edema. No tenderness. No deformity LLE: Normal range of motion. No edema. No tenderness. No deformity Neurological: Alert and oriented to person, place, and time. Normal strength. CN II-VII intact. No sensory deficit. GCS eye subscore is 4. GCS verbal subscore is 5. GCS motor subscore is 6. Normal coordination Skin: Skin is warm and dry. No rash noted. No pallor. Normal capillary refill. Psychiatric: Normal mood. Normal affect. Polite Const: Vital Signs, click to edit/add: Vital Signs - 24 hr 02/19/25 17:28 Temperature 98.9 F Pulse Rate [Pulse Oximeter] 88 Respiratory Rate 18 Blood Pressure [Ri ght Upper Arm] 146/82 H Pulse Oximetry 95 Oxygen Delivery Me thod Room Air Course Course ED Course: Recheck-after 1st DuoNeb feeling slightly better. Lung still quite wheezy but perhaps minimally improved. Reevaluation(s) Reevaluation #1: Recheck-after 2nd DuoNeb is feeling definitely better. Repeat lung exam still reveals some mild wheezing but much improved compared to arrival. She feels better and is eager to get home Vital Signs Vital signs: Initial Vital Signs Temperature 98.9 F 02/19/25 17:28 Temperature Source Temporal Artery Scan 02/19/25 17:28 Pulse Rate 88 02/19/25 17:28 Respiratory Rate 18 02/19/25 17:28 Blood Pressure 146/82 H 02/19/25 17:28 Blood Pressure Mean 103 02/19/25 17:28 Blood Pressure Position Sitting 02/19/25 17:28 Pulse Oximetry 95 02/19/25 17:28 Oxygen Delivery Method Room Air 02/19/25 17:28 Vital Signs Temperature 98.9 F 02/19/25 17:28 Pulse Rate 88 02/19/25 17:28 Respiratory Rate 18 02/19/25 17:28 Blood Pressure 146/82 H 02/19/25 17:28 Pulse Oximetry 95 02/19/25 17:28 Oxygen Delivery Method Room Air 02/19/25 17:28 Temperature 98.9 F 02/19/25 17:28 Pulse Rate 88 02/19/25 17:28 Respiratory Rate 18 02/19/25 17:28 Blood Pressure 146/82 H 02/19/25 17:28 Pulse Oximetry 95 02/19/25 17:28 Oxygen Delivery Method Room Air 02/19/25 17:28 Medications Administered Medications: Discontinued Medications Generic Name Dose Route Start Last Admin Trade Name Johnathonq PRN Reason Stop Dose Admin Albuterol/Ipratropium 1 [facility] 02/19/25 19:04 02/19/25 19:11 Iprat-Albut 0.5-2.5 Mg/3 Ml [facility] 02/19/25 19:05 1 neb ONCE ONE Administration Albuterol/Ipratropium 1 [facility] 02/19/25 21:00 02/19/25 21:06 Iprat-Albut 0.5-2.5 Mg/3 Ml [facility] 02/19/25 21:01 1 neb ONCE ONE Administration Medical Decision Making MDM Narrative Medical decision making narrative: This patient presents for evaluation of shortness of breath , cough and wheezing. She had been diagnosed with a left lower lobe pneumonia couple of days ago and is now on Augmentin and azithromycin for that. She is also on oral steroids and inhaler/nebulizers for asthma exacerbation. She returns to the ER because her breathing is just not getting any better. On my exam she is definitely wheezing in all lung mauricio but I do not hear any definite rales to suggest ongoing consolidation left lower lobe. She is not febrile, tachycardic, hypoxic, hypotensive. No signs of septic shock from pneumonia. Signs and symptoms are consistent with asthma exacerbation. A broad differential was considered including asthma, pneumonia, bronchitis, pneumothorax, viral induced wheezing, allergic phenomena, among others. There are no signs at this point of any serious etiologies including those mentioned above. The patient feels and sounds improved after interventions here in ED. at this point I do not think she needs repeat chest x-ray, lab workup, or CT PA. No indication for hospitalization at this time including no hypoxia, no marked increase in respiratory rate, and there are minimal to no retractions. Supportive outpati ent management is indicated, medications for discharge noted above. She will use DuoNeb every 2-4 hours as needed as well as her other albuterol nebs and inhaler. Continue on steroids. She already has an appointment tomorrow morning for follow-up and I advised that she keep that to make sure her wheezing continues to get better. Return if increased wheezing, progressive shortness of breath, develops fever greater than 102. Questions answered and patient comfortable with plan. Discharge Plan Discharge Clinical Impression: Asthma, Pneumonia Patient Disposition: Home, Self-Care Condition: Stable Instructions: Asthma (ED) Additional Instructions: As we discussed, please come back to the ER right away if you have worsening shortness of breath, chest pain, fever, or any other concerns. Please continue on the antibiotics for your pneumonia. Please continue on the steroids once daily for your asthma. Use your nebulizer every 2-4 hours as needed for shortness of breath and chest tightness. I will send in a prescription for some extra DuoNebs that you can use at home. Please follow-up with your doctor tomorrow. Prescriptions: New ipratropium-albuterol 0.5 mg-3 mg(2.5 mg base)/3 mL solution for nebulization 3 ml inhalation Q4H PRNQty: 90 0RF Rx Instructions: until breathing returns to target peak flow/parameters No Action albuterol sulfate 90 mcg/actuation HFA aerosol inhaler 2 puff inhalation Q4H PRN (Reason: wheezing) albuterol sulfate 2.5 mg /3 mL (0.083 %) solution for nebulization continuous nebulization Patient Comments: [NO ORIGINAL SIG] fluticasone propion-salmeterol [Wixela Inhub] 250-50 mcg/dose blister with device 1 ea inhalation BID azithromycin amoxicillin prednisone Follow Up/Referrals: Jeff Riojas MD [Primary Care Provider, Family Practice] Stand Alone Forms: Work/School Release, [employer] [place] Info Instructions
[2025-02-19] MEDS: IPRAT-ALBUT 0.5-2.5 MG/3 ML NEB 1 NEB IH ×2 (19:11→21:06)
== END 2025-02-19 22:00 | disposition home or self-care (01) ==
PROVIDERS: Emergency Provider Emergency Medicine; PCP Family Medicine
DX: J45.909 Unspecified asthma, uncomplicated (principal); J18.9 Pneumonia, unspecified organism
CPT/HCPCS: 99283; 99284